=== PATIENT | male | born 1950 | race Caucasian/White ===

== ENCOUNTER 2019-09-07 16:10 | Outpatient (CLI) | payer MEDICARE, SELFPAY ==
--- NOTE | ~2019-09-07 | XR_ITS ---
XR abdomen/kub 1V 09/07/2019 16:50 INDICATION: Constipation. Abdominal discomfort. TECHNIQUE: KUB COMPARISON: None FINDINGS: Bowel gas pattern is normal. There is no evidence of free air, mass, organomegaly, ascites or obstruction. No abnormal calculi are seen. The bones appear intact. There are pelvic phlebolith s. Lung bases unremarkable IMPRESSION: 1: No acute abdominal abnormality identified. Reviewed, dictated and finalized at location A. 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
== END 2019-09-07 16:11 | disposition home or self-care (01) ==
LOC: ANHIMG 16:20
PROVIDERS: Visit Provider Nurse Practitioner
DX: K59.00 Constipation, unspecified (principal)
CPT/HCPCS: 74018

== ENCOUNTER 2019-09-27 11:39 | Outpatient (CLI) | payer MEDICARE, SELFPAY ==
--- NOTE | ~2019-09-27 | XR_ITS ---
XR hip LT min 2V 09/27/2019 11:57 Indication: Left hip pain Procedure: 2 views left Comparison: No prior studies for comparison. Findings: There is mild osteoarthritis of the left hip. No acute fracture or traumatic malalignment. No significant soft tissue abnormality. No radiopaque foreign bodies. Impression: 1: Mild osteoarthritis of the left hip. Reviewed, dictated and finalized at location A. Impression: 1: Mild osteoarthritis of the left hip.
== END 2019-09-27 11:40 | disposition home or self-care (01) ==
LOC: ANHIMG 11:44
PROVIDERS: Visit Provider Emergency Medicine
DX: M16.12 Unilateral primary osteoarthritis, left hip (principal)
CPT/HCPCS: 73502

== ENCOUNTER 2019-11-19 11:44 | Emergency (ER) | payer MEDICARE, SELFPAY ==
--- NOTE | ~2019-11-19 | XR_ITS ---
XR chest 1V portable DATE: 11/19/2019 12:16 INDICATION: Midsternal chest pain, pain between shoulder blades TECHNIQUE: Portable upright AP views on 11/19/2019 at 1213 and 1212 hours COMPARISON: None FINDINGS: Normal heart size. No hilar or mediastinal enlargement. No pulmonary infiltrate or consolid ation, pleural effusion or pulmonary vascular congestion or pneumothorax. Diffuse idiopathic skeletal hyperostosis of the thoracic spine. Degenerative change of the right acromion clavicular N both glenohumeral joints. IMPRESSION: No active cardiopulmonary disease Diffuse idiopathic skeletal hyperostosis of the thoracic spine and degenerative changes of the should er joints Reviewed, dictated and finalized at location A. IMPRESSION: No active cardiopulmonary disease Diffuse idiopathic skeletal hyperostosis of the thoracic spine and degenerative changes of the shoulder joints
[2019-11-19 11:47] VITALS: BP 149/78; PULSE 70; RESP 18; TEMP 36.2; O2SAT 100
[2019-11-19 11:59] VITALS: RESP 16
--- NOTE | 2019-11-19 11:59 | ECG_ITS ---
Measurements Intervals [place] Rate: 68 P: 31 AL: 179 QRS: 39 QRSD: 161 T: 32 QT: 383 QTc: 408 Interpretive Statements SINUS RHYTHM RIGHT BUNDLE BRANCH BLOCK BASELINE ARTIFACT- I, II, AVR ABNORMAL ECG Electronically Signed On 11-19-2019 12:31:17 CDT by Allan Schuler D.O.
--- NOTE | 2019-11-19 11:59 | ED.GENADULT ---
HPI - General Adult General Chief complaint: Unspecified Stated complaint: pains for over a month, now between shoulder Time Seen by Provider: 11/19/19 11:52 Source: RN notes reviewed History of Present Illness HPI narrative: Patient presents to emergency department from home for upper back pain. Patient states that for the past 1 week he has been having pain in his upper back between his shoulder blades. Patient states pain is described as aching in nature and worse with rotation of the torso and reaching for things with his arms. He states the pain is radiating around to the front of his chest today. States the pain is achy in nature states he called his PCP physician who recommended come to the emergency department. Patient says over the past month he has been also having pain in his bilateral lower back with pain radiating to his left groin. He denies any trauma or injury. Denies any fevers or chills shortness of breath abdominal pain nausea or vomiting numbness or tingling in the extremities bowel or bladder incontinence or any other symptoms Related Data Allergies Allergy/AdvReac Type Severity Reaction Status Date / Time morphine Allergy Unknown Unknown Verified 11/19/19 11:50 Review of Systems Review of Systems: Narrative: Gen.: Denies fevers or chills Eyes: Denies eye pain or visual change ENT: Denies congestion Respiratory: Denies shortness of breath or cough CV: Reports chest pain, denies palpitation GI: Denies abdominal pain nausea, emesis or diarrhea denies bowel or bladder incontinence Musculoskeletal: See HPI Neuro: Denies numbness, tingling, weakness or focal weakness Skin: Denies rash Except as documented, all other systems reviewed and negative [facility] Past Medical History Medical History Claustrophobia Hx of adenomatous colonic polyps Hyperlipemia YANICK (obstructive sleep apnea) Skin cancer Vitamin D deficiency Social History Social History Years smoked: 30 Smoking status: Light tobacco smoker Tobacco type: cigars Alcohol intake: current Drinks per week: 14 Substance use: never Additional living arrangements comments: Additional occupation/education comments: retired Gender identity (if verbalized by the patient): Male Exam Narrative: Exam Narrative: APPEARANCE: No acute distress, nontoxic, resting in bed EYES: EOMI HEENT: Normocephalic, atraumatic, OMM RESPIRATORY: No respiratory distress Clear to auscultation bilaterally with no rhonchi wheezing or rales. CARDIOVASCULAR: Regular rate and rhythm without murmurs rubs or gallops. Chest: Tender palpation of bilateral anterior chest wall, pain increased with rotation of the torso deep inspiration ABDOMINAL: Soft, nontender, nondistended, no rebound or guarding Back: No midline thoracic lumbar tenderness palpation, tender palpation bilateral paravertebral paravertebral muscles T4-6 pain increased with rotation of the torso MUSCULOSKELETAl: Moves all extremities. No clubbing, cyanosis or edema. NEURO: Awake and alert. Following commands, speech normal, no focal deficits muscle strength 5 out of 5 bilateral upper and lower extremities SKIN:: Warm, dry. No rashes lesions or abrasions PSYCHIATRIC: Normal affect/mood, Course Course Emergency Course: CT scan of the chest was ordered the patient is extremely claustrophobic and unable to lay for the test. Ativan was given and again attempted to CT the chest and the patient continued to be unable to tolerate secondary to his claustrophobia. I had a long extensive discussion with patient regarding the need for a brief test graded only needs only there for 3 to 4 minutes and that it was open he continues to refuse we discussed risks and benefits including the risk of aneurysm cardiopulmonary arrest and and continues to refuse at this time and will hold CT Reviewed the plan
[2019-11-19 12:15] VITALS: PULSE 79
[2019-11-19 12:17] LABS: Basophils Percent Auto 0.3 % (0.2-1.2); Eosinophils Absolute Auto 0.1 K/mm3 (0-0.3); Eosinophils Percent Auto 0.8 % (0-4.4); Hematocrit 37.1 % (42.0-52.0); Hemoglobin 11.7 g/dL (14.0-18.0); Immature Granulocyte Absolute 0.02 K/mm3 (0.00-0.031); Immature Granulocyte Percent A 0.3 % (0-0.5); Lymphocytes Absolute Auto 1.24 K/mm3 (0.9-3.2); Lymphocytes Percent Auto 19.1 % (18.3-44.2); Mean Corpuscular HGB Conc 31.5 g/dl (32-36); Mean Corpuscular Hemoglobin 28.2 pg (26-34); Mean Corpuscular Volume 89.4 fl (80-100); Mean Platelet Volume 8.3 fl (7.4-10.4); Monocytes Absolute Auto 0.6 K/mm3 (0.1-0.6); Monocytes Percent Auto 8.9 % (2.6-8.5); Neutrophils Absolute Auto 4.6 K/mm3 (1.3-6.7); Neutrophils Percent Auto 70.6 % (45.5-73.1); Platelet Count Result 298 k/mm3 (150-375); Red Blood Count 4.15 M/mm3 (4.6-6.20); Red Cell Distribution Width 12.9 % (11.5-14.5); White Blood Count 6.5 K/mm3 (4.5-10.0)
[2019-11-19 12:31] LABS: Alanine Aminotransferase 20 U/L (4-50); Albumin Level 4.3 g/dL (3.5-5.1); Alkaline Phosphatase 96 U/L (38-126); Aspartate Amino Transferase 28 U/L (17-59); Bilirubin,Total 0.5 mg/dL (0.2-1.3); Blood Urea Nitrogen 15 mg/dL (9-20); Calcium 9.5 mg/dL (8.4-10.2); Carbon Dioxide 32 mmol/L (22-30); Chloride 102 mmol/L (98-107); Estimated CRCL calculation 96 ml/min; Estimated Glomerular Filt Rate > 60; Glucose 94 mg/dL (75-110); Lipase 42 U/L (23-300); Potassium 4.3 mmol/L (3.4-5.0); Sodium 137 mmol/L (137-145)
[2019-11-19 12:37] LABS: INR 1.1; Prothrombin Time 13.4 Seconds (11.1-14.7)
[2019-11-19 12:38] LABS: Partial Thromboplastin Time 30.3 SECONDS (22.3-36.8)
[2019-11-19 12:43] LABS: Troponin I < 0.012 ng/mL (0.000-0.034)
[2019-11-19 13:08] LABS: Add Urine Microscopic? YES; Appearance Urine Clear (Clear); Bilirubin Urine Negative (Negative); Blood Urine Negative (Negative); Color Urine Yellow (Yellow); Glucose Urine UA Negative (Negative); Ketones Urine Negative (Negative); Leukocyte Esterase Ur Negative LEU/UL (Negative); Mucus Urine Heavy /lpf; Nitrate Urine Negative (Negative); Protein Urine Negative (Negative); RBC Urine 0-2 /hpf (0-2); Specific Grav Ur 1.021 (1.001-1.035); WBC Urine 0-3 /hpf
[2019-11-19] MEDS: LORAZEPAM INJ 2 MG/ML VIAL 0.5 MG IV PUSH (14:03)
[2019-11-19 15:24] VITALS: BP 163/74; PULSE 58; RESP 14; O2SAT 100
[2019-11-19 15:54] LABS: Troponin I < 0.012 ng/mL (0.000-0.034)
== END 2019-11-19 17:02 | disposition home or self-care (01) ==
PROVIDERS: Emergency Provider Emergency Medicine; PCP Emergency Medicine
DX: M54.6 Pain in thoracic spine (principal); R07.89 Other chest pain; E78.5 Hyperlipidemia, unspecified; G47.33 Obstructive sleep apnea (adult) (pediatric); E55.9 Vitamin D deficiency, unspecified; Z85.828 Personal history of other malignant neoplasm of skin; F17.290 Nicotine dependence, other tobacco product, uncomplicated; I45.10 Unspecified right bundle-branch block
CPT/HCPCS: 36415; 71045; 80053; 81001; 83690; 84484; 85025; 85610; 85730; 93005; 96374; 99284; J2060

== ENCOUNTER 2019-11-25 06:34 | Outpatient (CLI) | payer MEDICARE, SELFPAY ==
--- NOTE | ~2019-11-25 | CT_ITS ---
EXAMINATION: CT chest wo con DATE: 11/25/2019 07:01 INDICATION: R07.89 Other chest pain TECHNIQUE: Computed tomography (CT) of the chest was performed without intravenous contrast. Addition al 3D reconstructions utilizing coronal maximum intensity projection (MIP) were performed. Automated exposure control and iterative reconstruction technique were employed. The dose-length product was 69 7.04 mGy-cm. COMPARISON: None FINDINGS: 3 mm nodule in the left upper lobe. Lungs are otherwise clear with no airspace disease, pulmonary jacques ma or pleural effusion. Heart size is normal. Atherosclerotic coronary artery calcification. There is some subtle fat attenuation along the ventricular septum suggesting prior myocardial infarction. No pericardial effusion. Thoracic aorta is normal in caliber. No pathologically enlarged thoracic lympha denopathy. There are however multiple enlarged lymph nodes in the upper abdomen with haziness to the surrounding fat in both the mesentery and retroperitoneum. For reference a mesenteric lymph node in t he left upper quadrant measures 5.3 x 2.3 cm and a partially visualized left paracolic lymph node srinivasan sures at least 2.5 x 1.7 cm. Spleen, gallbladder, pancreas, bilateral adrenal glands and visualized p ortions of the liver and bilateral kidneys are normal. There are bridging osteophytes at multiple lev els in the spine, consistent with diffuse idiopathic skeletal hyperostosis (DISH). Lytic bone lesions at the sternum and T11 vertebral bodies. IMPRESSION: 1. No evident acute cardiopulmonary disease. 2. Upper abdominal lymphadenopathy as well as a couple lytic bone lesions concerning for metastatic d isease or lymphoma. Would recommend contrast-enhanced CT of the abdomen and pelvis to assess for a pr imary malignancy. 3. Coronary artery disease with subtle fat attenuation on the ventricular septum suggesting earlier m yocardial infarction. Reviewed, dictated and finalized at location A. IMPRESSION: 1. No evident acute cardiopulmonary disease. 2. Upper abdominal lymphadenopathy as well as a couple lytic bone lesions rickey rning for metastatic disease or lymphoma. Would recommend contrast-enhanced CT of the abdomen and pelvis to assess for a primary malignancy. 3. Coronary artery disease with subtle fat attenuation on the ventricular septu m suggesting earlier myocardial infarction.
== END 2019-11-25 06:35 | disposition home or self-care (01) ==
LOC: ANHIMG 06:36
PROVIDERS: PCP Emergency Medicine; Visit Provider Emergency Medicine
DX: R07.9 Chest pain, unspecified (principal); R59.0 Localized enlarged lymph nodes; M89.9 Disorder of bone, unspecified; I25.10 Atherosclerotic heart disease of native coronary artery without angina pectoris
CPT/HCPCS: 71250

== ENCOUNTER 2019-11-25 06:57 | Emergency (ER) | payer MEDICARE, SELFPAY ==
--- NOTE | ~2019-11-25 | CT_ITS ---
EXAMINATION: CT abdomen pelvis w con DATE: 11/25/2019 08:28 INDICATION: Normal chest CT with lytic bone lesions and upper abdominal lymphadenopathy. TECHNIQUE: Computed tomography (CT) of the abdomen and pelvis was performed . with 100 mL Omnipaque-3 50 intravenous contrast. Automated exposure control and iterative reconstruction technique were emplo yed. The dose-length product was 1374.30 mGy-cm. COMPARISON: None FINDINGS: Minimal atelectasis in the left lower lobe. Heart size is normal. No pericardial or pleural effusion. Indeterminate ill-defined 1 cm lesion in segment 7 of the liver of slightly lower density than the s urrounding liver. There is an additional 12 mm lower-density lesion at the caudal aspect of the splee n. Gallbladder, pancreas, bilateral adrenal glands and kidneys are normal. There is mild colonic dive rticulosis with a sigmoid predominance. There is no adjacent inflammatory change to suggest divertic ulitis. Small bowel and appendix are normal. Bladder is normal. There is haziness to the mesentery montano rrounding bulky central mesenteric lymphadenopathy. There are additional enlarged left paraaortic lym ph nodes with similar surrounding inflammatory stranding. No pelvic lymphadenopathy. Bilateral fat-co ntaining inguinal hernias. No free intraperitoneal gas or fluid. Again seen is a lytic lesion occupyi ng a significant portion of the T11 vertebral body. No other suspicious lytic bone lesions identified . Mild L4 compression fracture with 20% anterior vertebral body height loss and subtle associated inc reased sclerosis suggesting subacute chronicity. Mild lumbar dextroscoliosis with mild to moderate sp ondylosis. Moderate bilateral hip osteoarthritis. IMPRESSION: 1. Bulky mesenteric and retroperitoneal lymphadenopathy suspicious for lymphoma with differential inc luding metastatic disease related to other unknown primary malignancy. Recommend CT-guided biopsy of one of the left paracolic lymph nodes. 2. Couple small proximal 1 cm lesions in the liver and spleen of lower density than surrounding paren chyma with differential including hemangiomas or other benign etiologies, lymphoma and metastatic dis ease. 3. Lytic lesion at T11 consistent with metastatic disease. 4. Subacute appearing mild L4 compression fracture without evident underlying lytic lesion. 5. Fat-containing bilateral inguinal hernias. Reviewed, dictated and finalized at location A. IMPRESSION: 1. Bulky mesenteric and retroperitoneal lymphadenopathy suspicious for lymphoma with differential including metastatic disease related to other unknown primar y malignancy. Recommend CT-guided biopsy of one of the left paracolic lymph nod es. 2. Couple small proximal 1 cm lesions in the liver and spleen of lower density than surrounding parenchyma with differential including hemangiomas or other be nign etiologies, lymphoma and metastatic disease. 3. Lytic lesion at T11 consistent with metastatic disease. 4. Subacute appearing mild L4 compression fracture without evident underlying l ytic lesion. 5. Fat-containing bilateral inguinal hernias.
[2019-11-25 07:01] VITALS: BP 159/73; PULSE 69; RESP 18; TEMP 36.5; O2SAT 100
[2019-11-25 07:10] VITALS: PULSE 67
--- NOTE | 2019-11-25 07:10 | ECG_ITS ---
Measurements Intervals [place] Rate: 67 P: 56 [place]: 197 QRS: 26 QRSD: 154 T: 27 QT: 375 QTc: 397 Interpretive Statements SINUS RHYTHM RIGHT BUNDLE BRANCH BLOCK ABNORMAL ECG Electronically Signed On 11-25-2019 8:17:53 CDT by Allan Schuler D.O.
--- NOTE | 2019-11-25 07:14 | ED.CHESTPAIN ---
HPI - Chest Pain General Chief Complaint: Chest Pain Stated Complaint: Chest pain Time Seen by Provider: 11/25/19 07:09 History of Present Illness HPI narrative: 69 yo male w/ history of claustrophobia presents with a complaint of pain. He says that for the past several weeks he has had pain in multiple locations around his body. The pain started in his lower back. It then moved up his back and began radiating into his chest. He has also noted pain in his left hip and shoulders at times. The pain is worse with movement and coughing. He has been taking tylenol and naproxen with little improvement. He reports that all of this was preceded by a colonoscopy and a period of severe constipation, which he feels that he now has under control. He was seen here on 11/19/2019 for this same pain. Cardiac work-up was negative. CTA of the chest was attempted, but he was not able to get it due to claustophobia. He was discharged to follow-up with his Dr. [place], his PCP. He ordered a non-contrast CT of his chest, which he had done today. While in radiology he complained of chest pain and was sent back to the ED. He says that this pain is no different than before. At the time of my evaluation he is no longer having any pain. Related Data Allergies Allergy/AdvReac Type Severity Reaction Status Date / Time morphine Allergy Unknown Unknown Verified 11/25/19 07:53 Review of Systems Review of Systems: All systems reviewed & are unremarkable except as noted in HPI and below Constitutional: Constitutional: Denies chills, Denies fever(s) and Denies weakness ENT: Denies dizziness Cardiovascular: Cardiovascular: Reports chest pain Respiratory: Respiratory: Denies chest congestion, Denies cough and Denies dyspnea Gastrointestinal: Gastrointestinal: Reports constipation, Denies diarrhea, Denies nausea and Denies vomiting Genitourinary: Genitourinary: Denies hematuria and Denies dysuria Musculoskeletal: Musculoskeletal: Reports back pain, Reports myalgias and Reports arthralgias Neurologic: Denies numbness and Denies weakness PMFSH Past Medical History Medical History Claustrophobia Hx of adenomatous colonic polyps Hyperlipemia YANICK (obstructive sleep apnea) Skin cancer Vitamin D deficiency Surgical History Surgical History History of back surgery History of bilateral carpal tunnel release History of bilateral knee replacement Hx of colonoscopy Hx of repair of rotator cuff Family History Family History Father Carcinoma of colon, Onset Age: 59 Patient's father is Mother Carcinoma of colon, Onset Age: 69 Patient's mother is Sibling Family history of cardiovascular disease Family history of malignant neoplasm Father Family history of malignant neoplasm, Onset Age: 59 Mother Family history of malignant neoplasm, Onset Age: 72 Social History Social History Years smoked: 30 Smoking status: Light tobacco smoker Tobacco type: cigars Alcohol intake: current Drinks per week: 14 Substance use: never Additional living arrangements comments: Additional occupation/education comments: retired Gender identity (if verbalized by the patient): Male Exam Const: General: healthy appearing, no acute distress and alert Orientation/consciousness: patient oriented x3 HENMT: Head: normal to inspection Neck: Neck: normal visual inspection and no lymphadenopathy Chest: Chest palpation & inspection: tenderness sternum Resp: Effort & Inspection: normal respiratory effort Auscultation: clear to auscultation bilaterally, no rales, no rhonchi and no wheezes Cardio: Jugular venous distension: no JVD Rate: regular rate Rhythm: regul
[2019-11-25 07:51] VITALS: BP 132/65; PULSE 65; RESP 15; O2SAT 100
[2019-11-25 07:52] VITALS: O2SAT 100
[2019-11-25 08:03] LABS: Basophils Percent Auto 0.3 % (0.2-1.2); Eosinophils Absolute Auto 0.1 K/mm3 (0-0.3); Eosinophils Percent Auto 1.4 % (0-4.4); Hematocrit 37.7 % (42.0-52.0); Hemoglobin 11.5 g/dL (14.0-18.0); Immature Granulocyte Absolute 0.03 K/mm3 (0.00-0.031); Immature Granulocyte Percent A 0.5 % (0-0.5); Lymphocytes Absolute Auto 1.13 K/mm3 (0.9-3.2); Lymphocytes Percent Auto 17.3 % (18.3-44.2); Mean Corpuscular HGB Conc 30.5 g/dl (32-36); Mean Corpuscular Hemoglobin 27.8 pg (26-34); Mean Corpuscular Volume 91.1 fl (80-100); Mean Platelet Volume 8.7 fl (7.4-10.4); Monocytes Absolute Auto 0.7 K/mm3 (0.1-0.6); Monocytes Percent Auto 10.1 % (2.6-8.5); Neutrophils Absolute Auto 4.6 K/mm3 (1.3-6.7); Neutrophils Percent Auto 70.4 % (45.5-73.1); Platelet Count Result 298 k/mm3 (150-375); Red Blood Count 4.14 M/mm3 (4.6-6.20); Red Cell Distribution Width 13.3 % (11.5-14.5); White Blood Count 6.5 K/mm3 (4.5-10.0)
--- NOTE | 2019-11-25 08:13 | PC.NURSE ---
Spoke to pt on phone after verbal permission from pt. Updated on pt status.
[2019-11-25 08:14] LABS: Alanine Aminotransferase 22 U/L (4-50); Albumin Level 4.2 g/dL (3.5-5.1); Alkaline Phosphatase 89 U/L (38-126); Aspartate Amino Transferase 31 U/L (17-59); Bilirubin,Total 0.2 mg/dL (0.2-1.3); Blood Urea Nitrogen 22 mg/dL (9-20); Calcium 9.6 mg/dL (8.4-10.2); Carbon Dioxide 32 mmol/L (22-30); Chloride 102 mmol/L (98-107); Estimated Glomerular Filt Rate > 60; Glucose 102 mg/dL (75-110); Potassium 4.5 mmol/L (3.4-5.0); Sodium 139 mmol/L (137-145)
[2019-11-25 08:26] LABS: Troponin I < 0.012 ng/mL (0.000-0.034)
[2019-11-25 08:53] VITALS: BP 135/77; PULSE 56; RESP 13; O2SAT 100
--- NOTE | 2019-11-25 08:56 | PC.NURSE ---
EDP at bedside discussing results w/ pt and pt at bedside.
--- NOTE | 2019-11-25 09:11 | PC.NURSE ---
ordered a breakfast tray per pt per request for coffee - called dietary
[2019-11-25 10:05] VITALS: BP 135/77; PULSE 63; RESP 14; O2SAT 99
== END 2019-11-25 10:06 | disposition home or self-care (01) ==
PROVIDERS: Emergency Provider Emergency Medicine; PCP Emergency Medicine
DX: M89.9 Disorder of bone, unspecified (principal); R59.1 Generalized enlarged lymph nodes; F40.240 Claustrophobia; E78.5 Hyperlipidemia, unspecified; G47.33 Obstructive sleep apnea (adult) (pediatric); Z85.828 Personal history of other malignant neoplasm of skin; E55.9 Vitamin D deficiency, unspecified; Z96.653 Presence of artificial knee joint, bilateral; F17.290 Nicotine dependence, other tobacco product, uncomplicated; K76.9 Liver disease, unspecified; D73.89 Other diseases of spleen; K40.90 Unilateral inguinal hernia, without obstruction or gangrene, not specified as recurrent
CPT/HCPCS: 36415; 71250; 74177; 80053; 84484; 85025; 93005; 99284; Q9967

== ENCOUNTER 2019-12-03 09:29 | Outpatient (CLI) | payer MEDICARE, SELFPAY ==
[2019-11-30 15:12] VITALS: BMI 34.3
[2019-12-03] VITALS (11 sets, daily range): BP systolic 136–163; BP diastolic 71–82; PULSE 52–81; RESP 14–16; O2SAT 95–100
--- NOTE | ~2019-12-03 | CT_ITS ---
EXAMINATION: CT biopsy lymph node DATE: 12/03/2019 12:38 INDICATION: Retroperitoneal lymphadenopathy. TECHNIQUE: The procedure including the risks, benefits, and alternatives was discussed with the patie nt. Risks discussed included bleeding and infection. The patient verbalized understanding of the risk s and agreed to proceed. The skin overlying the retroperitoneum was prepped and draped in usual ster ile fashion. Anesthetic was administered with 1% lidocaine subcutaneously. A 16 gauge outer needle was advanced under CT guidance to the enlarged left para-aortic lymph node. An 18 gauge core biopsy n eedle was then used to obtain 6 core biopsy specimens. The mA was adjusted according to patient size. Iterative reconstruction technique was employed. The dose-length product was 158.90 mGy-cm. The need le was removed and the entry site was cleaned and dressed. There were no immediate complications. FINDINGS: CT images demonstrate the outer needle tip adjacent to an enlarged left para-aortic lymph n ode. IMPRESSION: 1. CT-guided core needle biopsy of an enlarged left para-aortic lymph node. Reviewed, dictated and finalized at location A.
[2019-12-03 10:16] LABS: Prothrombin Time 13.3 Seconds (11.1-14.7)
== END 2019-12-03 09:30 | disposition home or self-care (01) ==
LOC: ANHIMG 09:31
PROVIDERS: Radiology Diagnostic Radiology; PCP Emergency Medicine; Visit Provider Surgery
DX: C82.93 Follicular lymphoma, unspecified, intra-abdominal lymph nodes (principal)
CPT/HCPCS: 36415; 38505; 77012; 85610; 88184; 88185; 88305

== ENCOUNTER 2019-12-30 13:39 | Outpatient (CLI) | payer MEDICARE, SELFPAY ==
--- NOTE | ~2019-12-30 | XR_ITS ---
EXAMINATION: XR lumbar spine 2-3V DATE: 12/30/2019 14:06 INDICATION: Acute bilateral back pain. TECHNIQUE: 3 views of lumbar spine were obtained. COMPARISON: Lumbar spine radiographs 02/21/2015, CT abdomen and pelvis 11/25/2019 FINDINGS: There is 8 degrees dextrocurvature of lumbar spine. There is a compression fracture of L4 w ith 1/5 loss of height. There is mild chronic anterior wedging of T12 and L1 vertebral bodies. There is mildly decreased disc height at L1-L2 and L2-L3, moderately decreased disc height at L3-L4, and mi ldly decreased disc height at L4-L5. There are endplate osteophytes at all levels. There is multileve l facet joint osteoarthritis, severe at L5-S1. IMPRESSION: 1. Moderate lumbar spondylosis. 2. L4 compression fracture, stable from 11/25/2019. Reviewed, dictated and finalized at location A.
--- NOTE | ~2019-12-30 | XR_ITS ---
EXAMINATION: XR thoracic spine 2V DATE: 12/30/2019 14:06 INDICATION: Acute bilateral back pain. TECHNIQUE: 2 views of thoracic spine were obtained. COMPARISON: CT abdomen and pelvis 11/25/2019 FINDINGS: There is 3 degrees levocurvature of thoracic spine. Vertebral body heights are normal. Ther e is a lytic lesion in T11 vertebral body better seen by CT. There is mildly decreased disc height at T9-T10 and T10-T11. There are bridging endplate osteophytes at multiple levels in the spine, consist ent with diffuse idiopathic skeletal hyperostosis (DISH). IMPRESSION: 1. Lytic lesion in T11 vertebral body better seen on the prior CT, consistent with lymphoma. 2. Mild thoracic spondylosis. 3. DISH. Reviewed, dictated and finalized at location A. IMPRESSION: 1. Lytic lesion in T11 vertebral body better seen on the prior CT, consistent w ith lymphoma. 2. Mild thoracic spondylosis. 3. DISH.
--- NOTE | ~2019-12-30 | XR_ITS ---
EXAMINATION: XR ribs RT 2V DATE: 12/30/2019 14:06 INDICATION: Right rib pain. TECHNIQUE: 3 views of the right ribs were obtained. COMPARISON: Chest single view 11/19/2019 FINDINGS: There is no right-sided pneumonia, pleural effusion, or pneumothorax. The heart size is nor mal. IMPRESSION: 1. No rib fracture. Reviewed, dictated and finalized at location A. IMPRESSION: 1. No rib fracture.
== END 2019-12-30 13:40 | disposition home or self-care (01) ==
LOC: ANHIMG 13:41
PROVIDERS: PCP Emergency Medicine; Visit Provider Internal Medicine Medical Oncology
DX: M54.9 Dorsalgia, unspecified (principal); M89.9 Disorder of bone, unspecified; M47.814 Spondylosis without myelopathy or radiculopathy, thoracic region; M48.14 Ankylosing hyperostosis [Forestier], thoracic region; M48.56XA Collapsed vertebra, not elsewhere classified, lumbar region, initial encounter for fracture
CPT/HCPCS: 71100; 72070; 72100

== ENCOUNTER 2020-03-16 09:36 | Outpatient (CLI) | payer MEDICARE, SELFPAY ==
--- NOTE | ~2020-03-16 | CT_ITS ---
EXAMINATION: CT chest abdomen pelvis wo con DATE: 03/16/2020 10:07 INDICATION: Bone metastases. Follicular lymphoma. TECHNIQUE: Computed tomography (CT) of the chest, abdomen, and pelvis was performed without intraveno us contrast. Automated exposure control and iterative reconstruction technique were employed. The dos e-length product was 1811.03 mGy-cm. COMPARISON: CT chest, abdomen and pelvis dated 11/25/2019 FINDINGS: CHEST CT: Unchanged 3 mm left upper lobe nodule with relatively high attenuation suggesting a calcified granulo ma. No new or enlarging pulmonary nodules, pneumonia, pulmonary edema or other pulmonary infiltrates with no pleural effusion. Heart size is normal. Atherosclerotic coronary artery calcifications and montano btle fat along the ventricular septum suggesting sequela of prior infarct. No pericardial effusion. T horacic aorta is normal in caliber. No pathologically enlarged thoracic lymphadenopathy. There is increasing sclerosis at an ununited pathologic sternal fracture at the site of a previously noted lytic lesion. Similarly there is increasing sclerosis at the previous noted lytic lesion at T11 also with pathologic compression fracture with <20% anterior vertebral body height loss. Increasing sclerosis at a healing likely pathologic anterior right 11th rib fracture at the site of a prior expa nsile lytic lesion. No other suspicious lytic or blastic bone lesions. ABDOMEN/PELVIS CT: Unchanged small low-attenuation lesion at segment 7 of the liver most likely a hepatic cyst or lois ioma. The previously noted 12 mm low-density/hypoenhancing lesion along the inferior spleen is not ev ident in the current study and may have represented metastatic disease with response to treatment. Ga llbladder, pancreas, bilateral adrenal glands and kidneys are normal. Small bowel and appendix are no rmal. There is mild colonic diverticulosis with a sigmoid predominance. There is no adjacent inflamm atory change to suggest diverticulitis. Bladder is normal. Bilateral fat-containing inguinal hernias. No free intraperitoneal gas or fluid. There is some persistent haziness to the small bowel mesentery. There has however been significant de crease in size of the prior bulky mesenteric and retroperitoneal lymph nodes. For reference a previou sly 4.6 x 3.6 cm conglomeration of left para-aortic lymph nodes at the level of L3 has decreased to 2 .0 x 1.4 cm which now also include some intervening fat. A 5.3 x 2.2 cm mesenteric lymph node in the left upper quadrant has decreased 3.1 x 0.8 cm. No significant interval change in a subacute L4 compr ession fracture with 20% anterior vertebral body height loss which is without evident underlying lyti c lesion at the prior study and which may be coincidental. No other suspicious lytic or newly sclerot ic bone lesions. IMPRESSION: 1. Significant decrease in size in bulky mesenteric and retroperitoneal lymphadenopathy consistent wi th treated lymphoma. 2. Increasing sclerosis consistent with response to treatment associated with likely pathologic fract ures at sites of prior lytic lesions at the sternum, anterior right 11th rib and T11 vertebral body. 3. No significant interval change in a healing mild L4 compression fracture without increasing sclero sis in the current study or prior lytic lesion to suggest underlying metastatic disease at this locat ion. 4. Prior 12 mm hypodense/hypoenhancing splenic lesion is no longer visualized which may be due to the absence of intravenous contrast or response to treatment of metastatic disease. Reviewed, dictated and finalized at location A. IMPRESSION: 1. Significant decrease in size in bulky mesenteric and retroperitoneal lymphad enopathy consistent with treated lymphoma. 2. Increasing scl
== END 2020-03-16 09:37 | disposition home or self-care (01) ==
LOC: ANHIMG 09:40
PROVIDERS: PCP Emergency Medicine; Visit Provider Internal Medicine Medical Oncology
DX: C79.51 Secondary malignant neoplasm of bone (principal); C82.90 Follicular lymphoma, unspecified, unspecified site
CPT/HCPCS: 71250; 74176

== ENCOUNTER 2020-05-04 11:08 | Outpatient (CLI) | payer MEDICARE, SELFPAY ==
--- NOTE | ~2020-05-04 | XR_ITS ---
EXAMINATION:XR_CERV2-3V_CR DATE: 05/04/2020 11:28 INDICATION: Neck pain TECHNIQUE: AP, lateral, and odontoid views of the cervical spine are provided. COMPARISON: None FINDINGS: There are 3 mm of retrolisthesis of C5 on C6. The odontoid is intact. No fracture is identi fied. The vertebral body heights are maintained. There is moderate loss of intervertebral disc space height at C5-6. Prevertebral soft tissues are normal. Degenerative osteophytes project from the anter ior endplates of multiple vertebral bodies. There is severe facet and uncovertebral joint osteoarthri tis in the mid and lower cervical spine. IMPRESSION: 1. Moderate cervical spondylosis without acute findings. Reviewed, dictated and finalized at location A.
== END 2020-05-04 11:09 | disposition home or self-care (01) ==
PROVIDERS: PCP Emergency Medicine; Visit Provider Emergency Medicine
DX: M47.812 Spondylosis without myelopathy or radiculopathy, cervical region (principal)
CPT/HCPCS: 72040

== ENCOUNTER 2020-06-14 08:30 | Outpatient (RCR) | payer MEDICARE, SELFPAY ==
--- NOTE | 2020-05-17 13:52 | PTOPEVAL ---
PHYSICAL THERAPY EVALUATION Thank you for referring Jai Alexander to [facility].? The patient was evaluated today with a dx of cervical spondylosis with left radiculopathy. The patient is scheduled to be seen for therapy? 2 x/week for 4 weeks. Please review, sign, date and return this plan of care DONYA. I agree with and certify that the following plan of care is medically necessary. Referring Physician Date Attending Provider: Mendez Oviedo MD *PT Outpatient Evaluation Start: 05/17/20 12:38 Freq: Status: Active Protocol: Document 05/17/20 12:30 MLV (Rec: 05/17/20 13:52 MLV [id number]) Assessment Status Evaluation Evaluation Information Problem Diagnosis cervical spondylosis with radiculopathy left arm Onset 4 months ago Cause no event Additional Evaluation Detail Patient had back surgery with a good recovery 10-15 years ago but no treatment for the neck so far. Patient has had surgery on both shoulders. *Lifestyle: works in [employer], Double the Donation ball, stationary bike Subjective Information Patient began having pain at Query Text:As Reported By Patient/ shoulder and left arm tingling Family without an event. The symptoms come and goes approximately 4 times a week. The symptoms can correlate to sitting at the computer more often than other activities. Diagnostic Tests X-Rays For This Problem Yes: OA cervical Pain Assessment Timing of Pain Assessment Timing of Pain Assessment Assessment Pain Scale Pain Scale Used Numeric (1 - 10) Self Report Pain Assessment Left Shoulder(s) Reported Pain Level 0 Greatest Pain Intensity 6 Pain Aggravating Factors Prolonged Position,Sitting Pain Score Pain Score 0: Self Report Interventions Used Interventions Used By Clinicians Education Pain Relief Interventions Used By Position Change Patient Cervical and Lumbar ROM Cervical ROM Cervical Flexion (0-60) 70 Query Text:Active in Degrees Cervical Extension (0-70) 20 Query Text:Active in Degrees Cervical Lateral Flexion Right (0-50) 25 Query Text:Active in Degrees Cervical Lateral Flexion Left (0-50) 40 Query Text:Active in Degrees Cervical Rotation Right (0-90) 65 Query Text:Active in Degrees Cervical Rotation Left (0-90) 65 Query Text:Active in Degrees Upper Extremity R
--- NOTE | 2020-06-14 09:18 | PTOPEVAL ---
PHYSICAL THERAPY DISCHARGE SUMMARY Thank you for referring Jai Alexander to [facility].? The patient has met all goals and no further skilled therapy needed after being seen for therapy? 8 visits. Please review, sign, date and return this plan of care DONYA. I agree with and certify that the following plan of care is medically necessary. Referring Physician Date Attending Provider: Mendez Oviedo MD *PT Outpatient Evaluation Start: 05/17/20 12:38 Freq: Status: Active Protocol: Document 06/14/20 08:30 MLV (Rec: 06/14/20 09:17 MLV [email or web address]) Therapy Assessment Status Discharge Pain Assessment Timing of Pain Assessment Timing of Pain Assessment Assessment Pain Scale Pain Scale Used Numeric (1 - 10) Self Report Pain Assessment Left Shoulder(s) Reported Pain Level 0 Pain Aggravating Factors Other Pain Aggravating Factors Other Pain Aggravating Factors excessive computer work will give an occasional, short tingling to his arm. Additional Pain Comments Patient feels he is 85% better than at eval Pain Score Pain Score 0: Self Report Interventions Used Interventions Used By Clinicians Exercise,Mobilization,Manual Therapy Techniques Pain Relief Interventions Used By Exercise,Position Change Patient Other Alleviating Interventions patient independent with posture correction Cervical and Lumbar ROM Cervical ROM Cervical Flexion (0-60) 70 Query Text:Active in Degrees Cervical Extension (0-70) 40 Query Text:Active in Degrees Cervical Lateral Flexion Right (0-50) 45 Query Text:Active in Degrees Cervical Lateral Flexion Left (0-50) 45 Query Text:Active in Degrees Palpation Assessment Palpation Palpation improved 85% since eval: cervical paraspinals, upper traps tightnesses minimal to none Special Tests-Upper Extremity Shoulder Special Tests Empty Can (supraspinatus) Test Negative Left,Negative Right Thoracic Outlet Special Tests [place] Maneuver Negative Left,Negative Right PT Clinical Summary Mr. Alexander is a 69 y/o male evaluated/treated for cervical spondylosis/left arm radiculopathy. The patient has improved with soft tissue palpation/vertebral mobility, cervical motion and a relief of radicular symptoms at left arm with activities.
== END 2020-06-14 13:05 | disposition home or self-care (01) ==
LOC: ANHPT 08:30
PROVIDERS: PCP Emergency Medicine; Visit Provider Emergency Medicine
DX: M47.812 Spondylosis without myelopathy or radiculopathy, cervical region (principal)
CPT/HCPCS: 97110; 97140; 97161

== ENCOUNTER 2021-08-13 08:00 | Outpatient (RCR) | payer MEDICARE, SELFPAY ==
--- NOTE | 2021-07-12 09:27 | PTOPEVAL ---
Thank you for referring Jai Alexander to [facility].? The patient is scheduled to be seen for therapy?2 x/week for 6 weeks. Please review, sign, date and return this plan of care DONYA. I agree with and certify that the following plan of care is medically necessary. Referring Physician Date Attending Provider: Priyank Ellison, DO Diagnosis chronic back pain Additional Evaluation Detail He was started on meloxicane which helped his pain. he had therapy for his neck ~1 yr ago, but does not perform HEP. Subjective Information He had an increase back pain Query Text:As Reported By Patient/ over the past 6 months. He Family tries to stretch his back in the morning. Hip flexor lunge stretch and trunk flex toe touches. Reports increased pain with walking, standing and lifting task. Denies limitations with IADL's due to pain. Difficulty with donning pants/ shoes due to knee pain. Pain Assessment Lower Back Reported Pain Level 1 Pain Description Sharp,Tightness Pain Frequency Chronic Lowest Pain Intensity 1 Greatest Pain Intensity 7 Pain Aggravating Factors Prolonged Position,Walking, Weight Bearing/Standing Cervical and Lumbar ROM Lumbar ROM Lumbar Flexion Active Floor:Hands to: Lateral Flexion mid thigh when substitution Query Text:Active Hands to: restricted increased pain Lumbar Comments 75% of trunk ext, no pain Cervical and Lumbar Muscle Testing Lumbar Strength Upper Abdominal Strength 3+Fair+ Lower Abdominal Strength 3+Fair+ Upper Back Extension 3-Fair- Lower Back Extension 3 Fair Lower Extremity Muscle Strength Testing Hip Strength Bilateral Hip Flexion Strength 4+ Good + Hip Extension Strength 4+ Good + Hip Abduction Strength 3+ Fair + Knee Strength Bilateral Knee Flexion Strength 5 Normal Knee Extension Strength 5 Normal Muscle Length Testing Muscle Length Testing Two-Joint Hip Flexor Shortened Muscles Short (R) Iliopsoas,Short (L) Iliopsoas,Short (R) Rectus Femoris,Short (L) Rectus Femoris,Short (R) Ilial Tib Band,Short (L) Ilial Tib Band Piriformis w/Hip Neutral (R) Moderate Tightness,(L)
--- NOTE | 2021-08-13 08:56 | PTOPEVAL ---
Physical Therapy Discharge Summary Thank you for referring Jai Alexander to [facility].?Jai has been seen for 9 therapy visits to address his back pain. As a result of skilled therapy services he demonstrates improved function, improved pain and improve limitations. He demonstrates indep and compliance with his HEP. Will DC skilled therapy services at this time. Please review, sign, date and return this discharge summary DONYA. I agree with and certify that the following plan of care is medically necessary. Referring Physician Date Attending Provider: Priyank Ellison, DO Diagnosis chronic back pain Additional Evaluation Detail He was started on meloxicam which helped his pain. he had therapy for his neck ~1 yr ago, but does not perform HEP. Subjective Information he reports his back is feeling Query Text:As Reported By Patient/ better as a result of therapy Family services. He was able to paint this weekend without significant changes in pain. Reports increased pain with prolonged bending over position for wood working task. He remains limited with prolonged walking and with lifting task. Reports improved hailey with sleeping and sitting. Difficulty with donning pants/shoes due to knee pain. Pain Assessment Lower Back Reported Pain Level 0 Pain Description Aching Pain Frequency Intermittent Lowest Pain Intensity 0 Greatest Pain Intensity 4 Pain Aggravating Factors Bending,Walking,Weight Bearing /Standing Cervical and Lumbar ROM Lumbar ROM Lumbar Flexion Active Floor:Hands to: Lateral Flexion distal thigh:Active Hands to: Lumbar Comments 75% of trunk ext, muscle tightness with trunk motions Lower Extremity Muscle Strength Testing Hip Strength Bilateral Hip Flexion Strength 4+ Good + Hip Extension Strength 5 Normal Hip Abduction Strength 4- Good - Knee Strength Bilateral Knee Flexion Strength 5 Normal Knee Extension Strength 5 Normal Muscle Length Testing Muscle Length Testing Two-Joint Hip Flexor Shortened Muscles Short (R) Iliopsoas,Short (L) Iliopsoas,Short (R) Rectus Femoris,Short (L) Rectus Femoris,Short (R) Ilial Tib B
== END 2021-09-25 12:44 | disposition home or self-care (01) ==
LOC: ANHPT 08:00
PROVIDERS: PCP Emergency Medicine; Visit Provider Internal Medicine Medical Oncology
DX: M54.9 Dorsalgia, unspecified (principal); G89.29 Other chronic pain
CPT/HCPCS: 97110; 97112; 97162

== ENCOUNTER 2022-12-11 10:38 | Inpatient (IN) | payer OTHER, MEDICARE, SELFPAY ==
[2022-12-11] VITALS (47 sets, daily range): BP systolic 96–154; BP diastolic 67–102; PULSE 66–136; RESP 13–25; TEMP 36.2–36.4; O2SAT 85–100; BMI 34.2
--- NOTE | ~2022-12-11 | XR_ITS ---
EXAMINATION: XR chest 1V portable DATE: 12/11/2022 12:56 INDICATION: Dizziness. TECHNIQUE: A single frontal view of the chest was obtained on 2 radiographs. COMPARISON: Chest single view 11/19/2019 FINDINGS: There is no pneumonia, pleural effusion, or pneumothorax. The heart size is normal. IMPRESSION: 1. No acute cardiopulmonary disease. Reviewed, dictated and finalized at location A.
--- NOTE | 2022-12-11 10:56 | ECG_ITS ---
Measurements Intervals [place] Rate: 135 P: 173 [place]: 142 QRS: 9 QRSD: 149 T: -15 QT: 308 QTc: 462 Interpretive Statements ATRIAL FLUTTER/TACHYCARDIA WITH RAPID VENTRICULAR RESPONSE RIGHT BUNDLE BRANCH BLOCK ABNORMAL ECG COMPARED TO ECG 11/25/2019 07:04:48 ATRIAL FLUTTER/TACHYCARDIA NOW PRESENT Electronically Signed On 12-11-2022 11:07:32 CDT by Allan Schuler D.O.
[2022-12-11 11:20] LABS: Basophils Percent Auto 0.5 % (0.2-1.2); Eosinophils Absolute Auto 0.1 K/mm3 (0-0.3); Eosinophils Percent Auto 1.8 % (0-4.4); Hematocrit 44.7 % (42.0-52.0); Hemoglobin 14.1 g/dL (14.0-18.0); Immature Granulocyte Absolute 0.02 K/mm3 (0.00-0.031); Immature Granulocyte Percent A 0.5 % (0-0.5); Lymphocytes Absolute Auto 0.61 K/mm3 (0.9-3.2); Lymphocytes Percent Auto 15.3 % (18.3-44.2); Mean Corpuscular HGB Conc 31.5 g/dl (32-36); Mean Corpuscular Hemoglobin 29.5 pg (26-34); Mean Corpuscular Volume 93.5 fl (80-100); Mean Platelet Volume 9.1 fl (7.4-10.4); Monocytes Absolute Auto 0.5 K/mm3 (0.1-0.6); Monocytes Percent Auto 12.3 % (2.6-8.5); Neutrophils Absolute Auto 2.8 K/mm3 (1.3-6.7); Neutrophils Percent Auto 69.6 % (45.5-73.1); Platelet Count Result 218 k/mm3 (150-375); Red Blood Count 4.78 M/mm3 (4.6-6.20)
[2022-12-11 11:32] LABS: Alanine Aminotransferase 34 U/L (6-50); Albumin Level 4.5 g/dL (3.5-5.1); Alkaline Phosphatase 28 U/L (38-126); Anion Gap 6 mmol/L (8-16); Aspartate Amino Transferase 36 U/L (17-59); Bilirubin,Total 0.7 mg/dL (0.2-1.3); Blood Urea Nitrogen 20 mg/dL (9-20); Calcium 8.7 mg/dL (8.4-10.2); Carbon Dioxide 29 mmol/L (22-30); Chloride 106 mmol/L (98-107); Estimated CRCL calculation 95 ml/min; Estimated Glomerular Filt Rate > 60; Glucose 92 mg/dL (65-110); Potassium 4.5 mmol/L (3.4-5.0); Sodium 141 mmol/L (137-145)
--- NOTE | 2022-12-11 12:34 | ED.GENADULT ---
HPI - General Adult General Chief complaint: Recheck/Abnormal Lab/Rx Stated complaint: low BP since friday Time Seen by Provider: 12/11/22 12:32 Source: patient and family Mode of arrival: ambulatory Limitations: no limitations History of Present Illness HPI narrative: 72 years old white male came to the emergency room with his by private car complaining of bouts of lightheadedness, clammy skin, flutters feeling for the last 3 days, worse with standing and activity, better laying down in bed. He denies any fever, chills, nausea, vomiting, chest pain, shortness of breath or having similar symptoms. History of non-Hodgkin lymphoma November 2021 status post 1 year of chemotherapy and 1 year of maintenance of treatment by Dr. Ellison. History of hyperlipidemia, smokes cigarettes, drinks daily, not in antiplatelet or anticoagulant medication Related Data Home Medications Medication Instructions Recorded Confirmed meloxicam 15 mg tablet mg 12/11/22 rosuvastatin 10 mg tablet mg 12/11/22 12/11/22 Allergies Allergy/AdvReac Type Severity Reaction Status Date / Time morphine Allergy Unknown Unknown Verified 12/11/22 11:39 Review of Systems Review of Systems: All systems reviewed & are unremarkable except as noted in HPI and below PMFSH Past Medical History Medical History (Updated 12/11/22 @ 15:54 by Faith Gavin MD) Claustrophobia Hx of adenomatous colonic polyps Hyperlipemia YANICK (obstructive sleep apnea) Skin cancer Vitamin D deficiency Surgical History Surgical History History of back surgery History of bilateral carpal tunnel release History of bilateral knee replacement Hx of colonoscopy Hx of repair of rotator cuff Family History Family History Father Carcinoma of colon, Onset Age: 59 Patient's father is Mother Carcinoma of colon, Onset Age: 69 Patient's mother is Sibling Family history of cardiovascular disease Family history of malignant neoplasm Father Family history of malignant neoplasm, Onset Age: 59 Mother Family history of malignant neoplasm, Onset Age: 72 Social History Social History Years smoked: 30 Smoking status: Light tobacco smoker Tobacco type: cigars Alcohol intake: current Drinks per week: 14 Substance use: never Living arrangements: with family Additional living arrangements comments: Additional occupation/education comments: retired Gender identity (if verbalized by the patient): Male Exam Narrative: General appearance: Well-developed, well-nourished Skin: Normal color Head: Normocephalic, nontraumatic Eyes: Clear conjunctiva ENT: Oropharynx normal, ears normal, nose normal Neck: Supple, nontender Chest and respiratory: Airway patent, no respiratory distress, no accessory muscle use Heart: Tachycardia Abdomen: Soft, nontender, no organomegaly, quiet bowel sounds Vascular: Normal peripheral pulses, normal capillary refill. Musculoskeletal: Normal range of motion, nontender back Neurologic: Alert and oriented ?3, WORKFORCE MANAGER is normal as tested, no gross motor deficit Course Reevaluation(s) Reevaluation #1: Currently is asymptomatic Date: 12/11/22 Time: 15:52 Consultations Consultation #1: DR KUO Date: 12/11/22 Time: 15:52 Vital Signs Vital signs: Vital Signs Temperature 36.3 C L 12/11/22 10:54 Pulse Rate 133 H 12/11/22 10:54 Respiratory Rate 18 12/11/22 10:54 Blood Pressure 96/67 L 12/11/22 10:54 Pulse Oximetry
[2022-12-11] MEDS: dilTIAZem HCl INJ 25 MG/5 ML VIAL 10 MG IV PUSH (12:55)
[2022-12-11] MEDS: dilTIAZem 100 MG/100 ML 100 MG/100 ML BAG IV CONT (12:55)
[2022-12-11 13:05] LABS: NT Pro B Type Natriuretic Pept 1650 pg/mL (19.9-100)
[2022-12-11 13:09] LABS: Prothrombin Time 13.8 Seconds (11.1-14.7)
[2022-12-11 13:10] LABS: Partial Thromboplastin Time 24.7 SECONDS (22.3-36.8)
[2022-12-11 13:11] LABS: Troponin I < 0.012 ng/mL (0.000-0.034)
--- NOTE | 2022-12-11 13:33 | ECG_ITS ---
Measurements Intervals [place] Rate: 72 P: [place]: 0 QRS: 52 QRSD: 134 T: 0 QT: 345 QTc: 379 Interpretive Statements ATRIAL FLUTTER/TACHYCARDIA WITH CONTROLLED VENTRICULAR RATE RIGHT BUNDLE BRANCH BLOCK BASELINE ARTIFACT- I, II, III, AVR, AVL, AVF, V1-V3 ABNORMAL ECG COMPARED TO ECG 12/11/2022 10:59:46 HEART RATE HAS DECREASED Electronically Signed On 12-11-2022 13:48:28 CDT by Allan Schuler D.O.
[2022-12-11] MEDS: ENOXAPARIN 120 MG/0.8 ML SYRINGE SUB-Q (14:06)
[2022-12-11] MEDS: LORazepam INJ (*CRX) 2 MG/ML VIAL 1 MG IV PUSH (14:15)
[2022-12-11 16:02] LABS: Troponin I < 0.012 ng/mL (0.000-0.034)
--- NOTE | 2022-12-11 18:42 | PM.IMHP ---
H&P: HPI History of Present Illness Date/Time: 12/11/22 19:00 Chief Complaint: Dizziness and fluttering in chest. Narrative: This is a very pleasant 72-year-old male with sleep apnea diagnosed 15+ years ago no longer on CPAP due to claustrophobia, non-Hodgkin lymphoma, hyperlipidemia, and arthritis who presented to the emergency department via private vehicle from home for evaluation of dizziness and fluttering in the chest. About 3 days ago he went to stand up from a seated position and he suddenly felt lightheaded and dizzy and he noticed that his heart was racing and fluttering. He was also pale and clammy at that time and reports feeling some tingling in his shoulders. The fluttering in his chest has been constant but seems more noticeable when lying down. He continues to feel lightheaded and dizzy with position changes and due to ongoing symptoms he came in today for evaluation. He denies syncope, focal weakness, facial droop, difficulty speaking and swallowing, chest pain, pleuritic pain, shortness a breath, nausea, vomiting, and lower extremity edema. He has no history of cardiac disease, cardiac dysrhythmia, or thyroid disease. On arrival to the ED he was afebrile, blood pressure was 96/67, and his pulse was 133. EKG showed atrial flutter/tachycardia with rapid ventricular response and right bundle-branch block and he has been started on a diltiazem drip with improvement in his rate. CMP and CBC were relatively unremarkable. TSH was 1.320. Troponin was normal and his proBNP was 1650. Chest x-ray showed no acute cardiopulmonary disease. He is being admitted in this setting for further treatment and Cardiology consultation. Review of Systems Review of Systems: Twelve systems were reviewed. Weight has remained stable. He has not used the CPAP for many years as he is claustrophobic. He does have occasional daytime somnolence but nothing significant. He denies paroxysmal nocturnal dyspnea. states he snores only when lying on his back. She has not noticed any periods of apnea. He is followed by Dr. Ellison for his non-Hodgkin lymphoma and he reports finishing maintenance chemotherapy almost a year ago. He denies lymphadenopathy. No history of DVT. Except as documented, all other systems were reviewed and are negative. [facility], [facility] Past Medical History Medical History (Updated 12/11/22 @ 21:43 by Crystal Hamilton PA-C) Adenomatous colon polyp Claustrophobia Hyperlipemia Non-Hodgkin lymphoma (11/2019) Obstructive sleep apnea Unable to tolerate CPAP due to claustrophobia. Osteoarthritis Skin cancer Vitamin D deficiency Surgical History Surgical History (Updated 12/11/22 @ 21:39 by Crystal Hamilton PA-C) History of back surgery History of bilateral carpal tunnel release History of bilateral knee replacement History of colonoscopy with polypectomy History of lumbar surgery History of repair of right rotator cuff History of vasectomy Family History Family History Father Patient's father is Carcinoma of colon, Onset Age: 59 Mother Patient's mother is Carcinoma of colon, Onset Age: 69 Sibling Family history of cardiovascular disease Family history of malignant neoplasm Lung cancer Father Family history of malignant neoplasm, Onset Age: 59 Mother Family history of malignant neoplasm, Onset Age: 72 Social History Social History (Updated 12/11/22 @ 21:40 by Crystal Hamilton PA-C) Social History: Surrogate medical decision maker: Neida Alexander, spouse. Code status: Full code. Years smoked: 30 Smoking status: Current some day smoker Tobacco type: cigars Additional smoking assessment comments: Smokes a cigar daily, takes him 1 week to finish a cigar. Alcohol intake: current Drinks per week: 7 Alcohol use details: Typically drinks [place] [employer] which has no alcohol, occasiona
[2022-12-11 18:59] LABS: Troponin I < 0.012 ng/mL (0.000-0.034)
--- NOTE | 2022-12-11 20:09 | ADMGEN ---
This patient, Jai Alexander, was admitted to IMU Room 210-01 AT 1940 ON 12/11/2022. Patient/family oriented to hospital policies and general routines including ID bracelet, bed and alarms, visiting hours, pain management, procedures, bathroom and other care routines, personal items, smoking policy, room service/diet, and visiting hours. Information on how to activate the Rapid Response Team has been discussed. Patient/Family are encouraged to report perceived risks to care and to ask questions if they do not understand what they are told or what they should do.
[2022-12-11] MEDS: ALPRAZolam (*CRX) 0.125 MG TABLET PO (22:34)
[2022-12-11 23:30] LABS: D Dimer 0.29 ug/mL (<0.48)
[2022-12-12] VITALS (15 sets, daily range): BP systolic 100–146; BP diastolic 49–75; PULSE 58–107; RESP 16–20; TEMP 36.1–36.5; O2SAT 95–100
[2022-12-12] MEDS: dilTIAZem 100 MG/100 ML 100 MG/100 ML BAG IV CONT (04:24)
[2022-12-12 08:01] LABS: Hematocrit 43.9 % (42.0-52.0); Mean Corpuscular HGB Conc 31.9 g/dl (32-36); Mean Corpuscular Hemoglobin 29.8 pg (26-34); Mean Corpuscular Volume 93.4 fl (80-100); Mean Platelet Volume 8.7 fl (7.4-10.4); Platelet Count Result 200 k/mm3 (150-375); White Blood Count 3.6 K/mm3 (4.5-10.0)
[2022-12-12] MEDS: ENOXAPARIN 40 MG/0.4 ML SYRINGE SUB-Q (08:24)
[2022-12-12] MEDS: ROSUVASTATIN 10 MG TABLET PO (08:24)
[2022-12-12] MEDS: ACIDOPHILUS/BULGARICUS CHEWABLE TABLET 1 TABLET BY MOUTH (08:25)
[2022-12-12] MEDS: CHOLECALCIFEROL 1,000 UNITS TABLET 1000 UNITS PO (08:25)
[2022-12-12 08:29] LABS: Anion Gap 6 mmol/L (8-16); Blood Urea Nitrogen 17 mg/dL (9-20); Calcium 8.8 mg/dL (8.4-10.2); Carbon Dioxide 31 mmol/L (22-30); Chloride 105 mmol/L (98-107); Estimated CRCL calculation 95 ml/min; Estimated Glomerular Filt Rate > 60; Glucose 95 mg/dL (65-110); Magnesium 2.3 mg/dL (1.6-2.3); Potassium 3.9 mmol/L (3.4-5.0); Sodium 142 mmol/L (137-145)
--- NOTE | 2022-12-12 11:16 | PM.CNCAR ---
Assessment and Plan Assessment and plan (1) Atrial flutter with rapid ventricular response: Code(s): I48.92 - Unspecified atrial flutter Status: Acute Assessment and Plan: New onset atrial flutter. Presented with complaints of palpitations and dizziness, was found to be in Aflutter with RVR. He is rate controlled on diltiazem drip currently. Asymptomatic at this time. Shift from IV diltiazem to p.o. Will use short acting diltiazem for now (30mg q6h) and if rate well controlled will transition him to long acting diltiazem at discharge for dosing convenience. CHADs2 Vasc score is 2, anticoagulation is indicated. Will start Xarelto 20mg p.o. tonight Check echo TSH WNL After he has been anticoagulated for 4-6 weeks, can discuss DCCV as outpatient Compliance with CPAP important for ongoing management of his arrhythmia Anticipate discharge in the next 24 hours if he remains rate controlled on oral Diltiazem History of Present Illness History of Present Illness Consult date/time: 12/12/22 11:16 Requesting physician: Faith Gavin MD Consult reason: Other (atrial flutter) Reason For Visit: new onset a flutter with rvr Narrative: Mr. Alexander is a very pleasant 72-year-old male with a medical history of obstructive sleep apnea not on CPAP, non-Hodgkin lymphoma, hyperlipidemia, and arthritis. This is a patient who presented to the emergency department with a chief complaint of a sensation of fluttering in the chest. He had also been experiencing dizziness especially when he was transitioning from a seated to a standing position for about 3 days. Patient also reports feeling cool, clammy, and pale over the past few days. Because of these symptoms he was encouraged by his to come to the emergency department for evaluation. Upon being placed on telemetry, he was noted to be in atrial flutter with rapid ventricular response. He was initially treated with IV bolus of diltiazem and placed on a diltiazem drip. His rate is currently controlled in the 90s and he no longer is experiencing any palpitations or dizziness. He does not have any cardiac history and denies any history of chest pain, swelling, syncope, presyncope, or orthopnea. Currently, he is lying comfortably in his bed and has no complaints. Review of Systems Review of Systems: All systems reviewed & are unremarkable except as noted in HPI and below PMFSH Past Medical History Medical History Adenomatous colon polyp Claustrophobia Hyperlipemia Non-Hodgkin lymphoma (11/2019) Obstructive sleep apnea Unable to tolerate CPAP due to claustrophobia. Osteoarthritis Skin cancer Vitamin D deficiency Surgical History Surgical History History of back surgery History of bilateral carpal tunnel release History of bilateral knee replacement History of colonoscopy with polypectomy History of lumbar surgery History of repair of right rotator cuff History of vasectomy Family History Family History Father Patient's father is Carcinoma of colon, Onset Age: 59 Mother Patient's mother is Carcinoma of colon, Onset Age: 69 Sibling Family history of cardiovascular disease Family history of malignant neoplasm Lung cancer Father Family history of malignant neoplasm, Onset Age: 59 Mother Family history of malignant neoplasm, Onset Age: 72 Social History Social History Social History: Surrogate medical decision maker: Neida Alexander, spouse. Code status: Full code. Years smoked: 30 Smoking status: Current some day smoker Tobacco type: cigars Additional smoking assessment comments: Smokes a cigar daily, takes him 1 week to finish a cigar. Alcohol intake: curr
--- NOTE | 2022-12-12 12:15 | PM.IMPN ---
Progress Note: A&P Assessment and Plan (1) Atrial flutter with rapid ventricular response: Code(s): I48.92 - Unspecified atrial flutter Status: Acute Assessment and Plan: Rate is controlled now. tSH is within normal limits. Cardizem drip may be discontinued. Will defer to Cardiology. echocardiogram ordered. (2) Obstructive sleep apnea: Code(s): G47.33 - Obstructive sleep apnea (adult) (pediatric) Status: Acute Assessment and Plan: Apnea link ordered. (3) Hyperlipemia: Code(s): E78.5 - Hyperlipidemia, unspecified Status: Acute Assessment and Plan: Continue statin, LFTs within normal limits. (4) Non-Hodgkin lymphoma: Onset Date: 11/2019 Code(s): C85.90 - Non-Hodgkin lymphoma, unspecified, unspecified site Status: Acute Assessment and Plan: Diagnosed in November 2019. Finished chemo and maintenance chemo last year. Followed by Dr. Ellison. Subjective Date/time seen: 12/12/22 12:15 Interval history: Currently asymptomatic Review of Systems Review of Systems: All systems reviewed & are unremarkable except as noted in HPI and below Exam Const: General: comfortable, no acute distress, alert and awake Orientation/consciousness: patient oriented x3 HENMT: Head: normal to inspection Eyes: General: appearance normal, both eyes and all related structures Pupils: Equal, round and reactive pupils present Neck: Neck: normal visual inspection, supple and no JVD Thyroid: thyroid normal Carotids: normal carotid upstroke Resp: Effort & Inspection: normal respiratory effort Auscultation: clear to auscultation bilaterally Cardio: Rate: regular rate Rhythm: abnormal rhythm irregularly irregular Heart sounds: S1 normal heart sound present, S2 normal heart sound present and no murmurs GI: Auscultation: normal bowel sounds Skin: General skin exam: normal color Neuro: General: patient oriented x3 Cranial nerves: Yes Equal, round and reactive pupils present Extrem: General: normal to inspection Other: No edema Psych: Appearance: grossly normal Mental Status: mental status grossly normal Objective Data Vital Signs Vital Signs: Vital Signs - 24 hr 12/11/22 12:55 12/11/22 14:45 12/11/22 13:45 Temperature Pulse Rate 136 H 70 92 Respiratory Rate 16 20 Blood Pressure 111/92 H 101/71 126/86 Pulse Oximetry 96 98 Oxygen Delivery 12/11/22 12:34 12/11/22 12:35 12/11/22 12:45 Temperature Pulse Rate 135 H 133 H 133 H Respiratory Rate 18 18 20 Blood Pressure 106/85 111/92 H Pulse Oximetry Oxygen Delivery 12/11/22 12:46 12/11/22 13:00 12/11/22 13:03 Temperature Pulse Rate 134 H 103 H 125 H Respiratory Rate 20 18 19 Blood Pressure 129/83 Pulse Oximetry 98 99 Oxygen Delivery 12/11/22 13:22 12/11/22 13:30 12/11/22 13:31 Temperature Pulse Rate 91 91 92 Respiratory Rate 16 17 16 Blood Pressure 108/74 Pulse Oximetry 98 97 98 Oxygen Delivery 12/11/22 13:46 12/11/22 13:47 12/11/22 14:00 Temperature Pulse Rate 104 H 103 H 93 Respiratory Rate 19 17 21 H Blood Pressure 126/86 Pulse Oximetry 99 99 99 Oxygen Delivery 12/11/22 14:25 12/11/22 14:30 12/11/22 14:31 Temperature Pulse Rate 110 H 76 79 Respiratory Rate Blood Pressure 117/78 Pulse Oximetry 95 98 95 Oxygen Delivery 12/11/22 14:52 12/11/22 15:03 12/11/22 15:23 Temperature Pulse Rate 73 76 75 Respiratory Rate Blood Pressure Pulse Oximetry 99 99 96 Oxygen Delivery 12/11/22 15:30 12/11/22 15:54 12/11/22 16:01 Temperature Pulse Rate 69 124 H Respiratory Rate Blood Pressure Pulse Oximetry 95 99 Oxygen Delivery 12/11/22 16:15 12/11/22 16:30 12/11/22 16:45 Temperature Pulse Rate 90 94 69 Respiratory Rate Blood Pressure Pulse Oximetry 99 97 98 Oxygen Delivery 12/11/22 17:03 12/11/22 17:15 12/11/22 17:31 [place]
[2022-12-12] MEDS: dilTIAZem HCL 30 MG TABLET PO ×2 (12:55→17:23)
[2022-12-12] MEDS: ALPRAZolam (*CRX) 0.125 MG TABLET PO (20:45)
[2022-12-12] MEDS: APIXABAN 5 MG TABLET PO (20:45)
--- NOTE | 2022-12-12 21:47 | ECHO_ITS ---
Patient Info Name: Jai Alexander Age: 72 years : 1950 Gender: Male Ht: 73 in Wt: 259 lbs BSA: 2.50 m2 HR: 66 bpm BP: 122 / 72 mmHg Heart Rhythm: Atrial Flutter Technical Quality: Fair Exam Date: 12/12/2022 11:37 AM Exam Location: [facility] Patient Status: Inpatient Admit Date: 12/11/2022 Staff Ordering Physician: Crystal Hamilton PA-C Carroter: Jose Luis Blount RDCS Attending Provider: Godwin Keller MD Referring Physician: Alfonso DOUGHERTY; Exam Type: CA echo doppler color flow Study Info Indications - new onset atraial flutter Complete two-dimensional, color flow and Doppler transthoracic echocardiogram is performed. Summary 1. Complete two-dimensional, color flow and Doppler transthoracic echocardiogram is performed. 2. Left ventricular chamber dimension is normal. 3. Left ventricular systolic function is at lower limits of normal, estimated at 50-55%. 4. There is mildly increased left ventricular wall thickness. 5. The left ventricular diastolic function is grade I diastolic dysfunction. 6. Right ventricular systolic function is normal. 7. There is trace mitral valve regurgitation. 8. There is trace tricuspid valve regurgitation. 9. There is trace pulmonic regurgitation. Left Ventricle Left ventricular chamber dimension is normal. Left ventricular systolic function is at lower limits of normal, estimated at 50-55%. There is mildly increased left ventricular wall thickness. The left ventricular diastolic function is grade I diastolic dysfunction. Right Ventricle Right ventricular chamber dimension is normal. Right ventricular systolic function is normal. Left Atria Left atrial chamber dimension is normal. Right Atria Right atrial chamber dimension is mildly enlarged. Atrial Septum Intact interatrial septum visualized by color flow imaging. Aortic Valve The aortic valve is trileaflet. There is no aortic valve stenosis. There is no aortic valve regurgitation. Pulmonic Valve The pulmonic valve is not well visualized. There is trace pulmonic regurgitation. Mitral Valve There is no mitral valve stenosis. There is trace mitral valve regurgitation. The mitral valve annulus is mildly calcified. Tricuspid Valve There is trace tricuspid valve regurgitation. Pericardium/Pleural There is trivial anterior pericardial effusion. Inferior Vena Cava Inferior vena cava is not well visualized. Aorta The aortic root size at the sinus of Valsalva is normal. Left Ventricular Outflow Tract Name Value Normal LVOT 2D LVOT Diameter 2.3 cm LVOT Doppler LVOT Peak Gradient 2 mmHg LVOT Mean Gradient 1 mmHg LVOT VTI 14 cm LVOT VTI/AV VTI Ratio 0.9 LVOT Stroke Volume 56 ml LVOT CO 3.8 l/min LVOT CI 1.5 l/min/m2 Pulmonic Valve Name Value Normal RVOT Doppler ----
[2022-12-13] VITALS (7 sets, daily range): BP systolic 140–143; BP diastolic 87–93; PULSE 65–115; RESP 16–18; TEMP 36.1–37; O2SAT 98–99
[2022-12-13] MEDS: dilTIAZem HCL 30 MG TABLET PO ×2 (00:48→05:50)
--- NOTE | 2022-12-13 01:52 | PC.NURSE ---
Per Doctor order to D/C Diltiazem gtt one hour after first dose of p.o diltiazem.
--- NOTE | 2022-12-13 04:33 | ECG_ITS ---
Measurements Intervals [place] Rate: 68 P: LA: 0 QRS: 27 QRSD: 157 T: -14 QT: 390 QTc: 417 Interpretive Statements ATRIAL FLUTTER WITH CONTROLLED VENTRICULAR RATE RIGHT BUNDLE BRANCH BLOCK ABNORMAL ECG COMPARED TO ECG 12/11/2022 13:38:00 NO SIGNIFICANT CHANGES Electronically Signed On 12-13-2022 6:41:23 CDT by Allan Schuler D.O.
[2022-12-13] MEDS: CHOLECALCIFEROL 1,000 UNITS TABLET 1000 UNITS PO (09:43)
[2022-12-13] MEDS: APIXABAN 5 MG TABLET PO (09:43)
[2022-12-13] MEDS: ACIDOPHILUS/BULGARICUS CHEWABLE TABLET 1 TABLET BY MOUTH (09:44)
[2022-12-13] MEDS: ROSUVASTATIN 10 MG TABLET PO (09:44)
--- NOTE | 2022-12-13 10:19 | PM.PNCARD ---
Progress Note: A&P Assessment and Plan (1) Atrial flutter with rapid ventricular response: Code(s): I48.92 - Unspecified atrial flutter <JORGE Cai - Last Filed: 12/13/22 10:23> Status: Acute <JORGE Cai - Last Filed: 12/13/22 10:23> Assessment and Plan: New onset atrial flutter. Presented with complaints of palpitations and dizziness, was found to be in Aflutter with RVR. He is rate controlled on p.o. Diltiazem. Asymptomatic at this time. Continue Diltizem at current dose, shift to long acting for dosing convenience (120mg daily) CHADs2 Vasc score is 2, anticoagulation is indicated. Continue a/c with Eliquis 5mg b.i.d. Echo showed EF at lower limits of normal, 50-55%. Trace MR, TR, and pulmonic regurgitation After he has been anticoagulated for 4-6 weeks, can discuss DCCV as outpatient Outpatient sleep study OK for discharge today <JORGE Cai - Last Filed: 12/13/22 10:23> Assessment and Plan: Attending addendum: I agree with above documentation and plan of care as outlined. <Joey Hallman MD - Last Filed: 12/13/22 14:35> Subjective Date/time seen: 12/13/22 10:19 Cardiology follow up for atrial flutter <JORGE Cai - Last Filed: 12/13/22 10:23> Interval history: Patient remains in atrial flutter rate controlled on p.o. diltiazem. Feels well this morning and has no complaints of any kind. Ready to go home. <JORGE Cai - Last Filed: 12/13/22 10:23> Review of Systems Review of Systems: All systems reviewed & are unremarkable except as noted in HPI and below <JORGE Cai - Last Filed: 12/13/22 10:23> Exam Const: General: comfortable, no acute distress, alert and awake <JORGE Cai - Last Filed: 12/13/22 10:23> Orientation/consciousness: patient oriented x3 <JORGE Cai - Last Filed: 12/13/22 10:23> HENMT: Head: normal to inspection <JORGE Cai - Last Filed: 12/13/22 10:23> Eyes: General: appearance normal, both eyes and all related structures <JORGE Cai - Last Filed: 12/13/22 10:23> Pupils: Equal, round and reactive pupils present <JORGE Cai - Last Filed: 12/13/22 10:23> Neck: Neck: normal visual inspection, supple and no JVD <JORGE Cai - Last Filed: 12/13/22 10:23> Thyroid: thyroid normal <JORGE Cai - Last Filed: 12/13/22 10:23> Carotids: normal carotid upstroke <JORGE Cai - Last Filed: 12/13/22 10:23> Resp: Effort & Inspection: normal respiratory effort <JORGE Cai - Last Filed: 12/13/22 10:23> Auscultation: clear to auscultation bilaterally <JORGE Cai - Last Filed: 12/13/22 10:23> Cardio: Rate: regular rate <JORGE Cai - Last Filed: 12/13/22 10:23> Rhythm: abnormal rhythm irregularly irregular <JORGE Cai - Last Filed: 12/13/22 10:23> Heart sounds: S1 normal heart sound present, S2 normal heart sound present and no murmurs <JORGE Cai - Last Filed: 12/13/22 10:23> GI: Auscultation: normal bowel sounds <JORGE Cai - Last Filed: 12/13/22 10:23> Skin: General skin exam: normal color <JORGE Cai - Last Filed: 12/13/22 10:23> Neuro: General: patient oriented x3 <JORGE Cai - Last Filed: 12/13/22 10:23> Cranial nerves: Yes Equal, round and reactive pupils present <JORGE Cai - Last Filed: 12/13/22 10:23> Extrem: General: normal to inspection <JORGE Cai - Last Filed: 12/13/22 10:23> Other: No edema <JORGE Cai - Last Filed: 12/13/22 10:23> Psych: Appearance: grossly normal <JORGE Cai - Last Filed: 12/13/22 10:23> Mental Status: mental status grossly normal <JORGE Cai - Last Filed: 12/13/22 10:23> Objective Data Vital Signs Vital Signs: Vital Signs - 24 hr 12/12/22 12:00 12/12/22 12:00 12/12/22 14:00 Temperature 36.
--- NOTE | 2022-12-13 10:37 | PM.DS ---
DS: Admitting Diagnosis Discharge Date 12/13/2022 Admitting Diagnosis AFib without any DS: Discharge Diagnosis Discharge Diagnosis (1) Atrial flutter with rapid ventricular response: Code(s): I48.92 - Unspecified atrial flutter Status: Acute (2) Obstructive sleep apnea: Code(s): G47.33 - Obstructive sleep apnea (adult) (pediatric) Status: Acute DS: Summary Hospital Course Hospital Course: (1) Atrial flutter with rapid ventricular response: New onset atrial flutter.? Presented with complaints of palpitations and dizziness, was found to be in Aflutter with RVR.? Cardiology was consulted. he is rate controlled on p.o. Diltiazem. Asymptomatic at this time. Continue Diltizem long acting for dosing convenience (120mg daily) CHADs2 Vasc score is 2, anticoagulation is indicated.? Continue a/c with Eliquis 5mg b.i.d. Echo showed EF at lower limits of normal, 50-55%.? Trace MR, TR, and pulmonic regurgitation After he has been anticoagulated for 4-6 weeks, can discuss DCCV as outpatient Outpatient sleep study OK for discharge today Time Spent with Patient Time attestation: Total time spent providing and/or coordinating discharge services: Exam Const: General: comfortable, no acute distress, alert and awake Orientation/consciousness: patient oriented x3 HENMT: Head: normal to inspection Eyes: General: appearance normal, both eyes and all related structures Pupils: Equal, round and reactive pupils present Neck: Neck: normal visual inspection, supple and no JVD Thyroid: thyroid normal Carotids: normal carotid upstroke Resp: Effort & Inspection: normal respiratory effort Auscultation: clear to auscultation bilaterally Cardio: Rate: regular rate Rhythm: abnormal rhythm irregularly irregular Heart sounds: S1 normal heart sound present, S2 normal heart sound present and no murmurs GI: Auscultation: normal bowel sounds Skin: General skin exam: normal color Neuro: General: patient oriented x3 Cranial nerves: Yes Equal, round and reactive pupils present Extrem: General: normal to inspection Other: No edema Psych: Appearance: grossly normal Mental Status: mental status grossly normal Discharge Plan Discharge Consulting providers: Eileen Jewell Discharging Clinician: Neil Milan Anticipated Discharge Date/Time: 12/13/22 10:36 Patient Disposition: Home, Self-Care Activity: no preference Diet: heart healthy Patient Instructions: Antibiotic Form Stand Alone Forms: General Discharge Information Follow-up/Referrals: Benjamín,Nuvia Bhatt MD [Primary Care Provider] - Eileen Jewell MD [Physician] - Discharge Medications: New Eliquis 5 mg Tablet 5 mg PO Q12HR 30 Days Qty: 60 1RF diltiazem HCl 120 mg capsule,extended release 24 hr 120 mg PO DAILY Qty: 30 1RF Continued rosuvastatin 10 mg tablet 10 mg PO DAILY psyllium husk [Metamucil] 0.4 gram Capsule 0.4 g PO DAILY Daily Probiotic 2.5 billion cell Capsule 1 cap PO DAILY Vitamin D3 1 cap BYMOUTH DAILY Discontinued Benefiber (guar gum) 1 gram Tablet,Chewable 1 g PO DAILY Date of admission: 12/11/22 15:54 Primary Care Provider: Benjamín,Nuvia Bhatt Admitting Provider: Godwin Keller Attending physician on admission: Godwin Keller Condition: Stable
== END 2022-12-13 11:58 | disposition home or self-care (01) | DRG 309 ==
LOC: ANHED 15:54 → ANHIMU 12-12 10:25
PROVIDERS: Emergency Medicine; Physician Assistant; Admitting Provider Internal Medicine; Emergency Provider Emergency Medicine; PCP Internal Medicine; Visit Provider Hospitalist
DX: I48.92 Unspecified atrial flutter (principal); C85.90 Non-Hodgkin lymphoma, unspecified, unspecified site; E78.5 Hyperlipidemia, unspecified; E55.9 Vitamin D deficiency, unspecified; G47.33 Obstructive sleep apnea (adult) (pediatric); F17.290 Nicotine dependence, other tobacco product, uncomplicated; F40.240 Claustrophobia; Z96.653 Presence of artificial knee joint, bilateral; Z86.010 Personal history of colon polyps
CPT/HCPCS: 36415; 71045; 80048; 80053; 83735; 83880; 84443; 84484; 85025; 85027; 85380; 85610; 85730; 93005; 93306; 94762; 96365; 96366; 96372; 96375; 99285; A9270; J1650; J2060

== ENCOUNTER 2023-01-08 01:56 | Day surgery (SDC) | payer MEDICARE, SELFPAY ==
[2023-01-07 15:44] VITALS: BMI 35.2
[2023-01-08] VITALS (10 sets, daily range): BP systolic 97–144; BP diastolic 54–86; PULSE 53–101; RESP 11–24; O2SAT 95–100
--- NOTE | 2023-01-08 10:00 | ECG_ITS ---
Measurements Intervals [place] Rate: 52 P: 43 IA: 222 QRS: 34 QRSD: 169 T: 28 QT: 415 QTc: 386 Interpretive Statements SINUS BRADYCARDIA WITH FIRST DEGREE AV BLOCK RIGHT BUNDLE BRANCH BLOCK [120+ ms QRS DURATION, UPRIGHT V1, 40+ ms S IN I/aVL/V4/V5/V6] COMPARED TO ECG 01/08/2023 10:20:35 SINUS BRADYCARDIA NOW PRESENT FIRST DEGREE AV BLOCK NOW PRESENT Electronically Signed On 01-08-2023 19:54:54 CDT by Sania Carlson M.D.
[2023-01-08 11:10] LABS: Anion Gap 4 mmol/L (8-16); Blood Urea Nitrogen 19 mg/dL (9-20); Calcium 8.9 mg/dL (8.4-10.2); Carbon Dioxide 31 mmol/L (22-30); Chloride 106 mmol/L (98-107); Estimated CRCL calculation 94 ml/min; Estimated Glomerular Filt Rate > 60; Glucose 97 mg/dL (65-110); Magnesium 2.4 mg/dL (1.6-2.3); Potassium 4.3 mmol/L (3.4-5.0); Sodium 141 mmol/L (137-145)
--- NOTE | 2023-01-08 12:00 | ECG_ITS ---
Measurements Intervals [place] Rate: 89 P: CT: 0 QRS: 41 QRSD: 161 T: -42 QT: 363 QTc: 444 Interpretive Statements ATRIAL FLUTTER INDETERMINATE AXIS RIGHT BUNDLE BRANCH BLOCK [120+ ms QRS DURATION, UPRIGHT V1, 40+ ms S IN I/aVL/V4/V5/V6] COMPARED TO ECG 12/13/2022 04:42:10 NO SIGNIFICANT CHANGES Electronically Signed On 01-08-2023 19:53:32 CDT by Sania Carlson M.D.
--- NOTE | 2023-01-08 12:40 | WPDHPUPDATE1 ---
History and Physical Update Update Date/Time: 01/08/23 12:40 History and Physical has been reviewed, including an updated exam of the patient. There are NO changes in the patient's condition. Risks, benefits, and alternatives have been discussed and questions answered. Patient agrees to proceed with procedure.
--- NOTE | 2023-01-08 12:40 | WPDMODSED ---
Moderate Sedation Note-Pt Data Patient Data Diagnosis: Atrial flutter Present Complaint: Atrial flutter Procedure to be performed/Plan: Cardioversion Allergies Allergy/AdvReac Type Severity Reaction Status Date / Time morphine AdvReac Intermediate Vomiting Verified 01/07/23 16:05 Home Medications Medication Instructions Recorded Confirmed Type Lactobacillus 1 cap PO DAILY 12/11/22 01/07/23 History acidophilus-Bifidobac.animalis 2.5 billion cell capsule (Daily Probiotic) psyllium husk 0.4 gram capsule 0.4 g PO DAILY 12/11/22 01/07/23 History (Metamucil) rosuvastatin 10 mg tablet 10 mg PO DAILY 12/11/22 01/07/23 History apixaban 5 mg tablet (Eliquis) 5 mg PO Q12HR 30 days #60 tabs 12/13/22 01/07/23 Rx diltiazem HCl 120 mg capsule,24 120 mg PO DAILY #30 caps 12/13/22 01/07/23 Rx hr,extended release cholecalciferol (vitamin D3) 25 25 mcg PO DAILY 01/07/23 01/07/23 History mcg (1,000 unit) tablet (Vitamin D3) tamsulosin 0.4 mg capsule 0.4 mg PO DAILY 01/07/23 01/07/23 History Current Medications: Active Medications Sodium Chloride (Normal Saline Iv) 1,000 mls @ 30 mls/hr IV CONT .Q24H MARY BETH Sedation/Anesthesia: No previous sedation/anesthesia problems (including family history). [facility] Past Medical History Medical History Adenomatous colon polyp Claustrophobia Hyperlipemia Non-Hodgkin lymphoma (11/2019) Obstructive sleep apnea Unable to tolerate CPAP due to claustrophobia. Osteoarthritis Skin cancer Vitamin D deficiency Surgical History Surgical History History of back surgery History of bilateral carpal tunnel release History of bilateral knee replacement History of colonoscopy with polypectomy History of lumbar surgery History of repair of right rotator cuff History of vasectomy Family History Family History Father Patient's father is Carcinoma of colon, Onset Age: 59 Mother Patient's mother is Carcinoma of colon, Onset Age: 69 Sibling Family history of cardiovascular disease Family history of malignant neoplasm Lung cancer Father Family history of malignant neoplasm, Onset Age: 59 Mother Family history of malignant neoplasm, Onset Age: 72 Social History Social History Social History: Surrogate medical decision maker: Neida Alexander, spouse. Code status: Full code. Years smoked: 30 Smoking status: Current some day smoker Tobacco type: cigars Second hand tobacco smoke exposure: No Additional smoking assessment comments: Smokes a cigar daily, takes him 1 week to finish a cigar. Alcohol intake: current Drinks per week: 3 Alcohol use details: Typically drinks [place] Zero which has no alcohol, occasional wine or bourbon. Substance use: never Substance use type: does not use Lack of Transportation: No Lack of Food: Never True Current Housing: I Have Housing Concerned About Future Housing: No Difficulty Paying Gas/Electric Bills: No Difficulty Paying for Meds: No Currently Unemployed: No Education: High School Diploma/GED Difficulty w/ Childcare or Family Care: No Living arrangements: with family Additional living arrangements comments: Lives with spouse in [place]. 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 Spiritual care concerns: No Mod Sed Physical Exam Physical Exam Pre Procedural Exam: Normal: Appearance, Lungs, Heart Rate, Heart Rhythm, Neuro Exam, Extremities and Skin Hours since solid foods: 12 Hours since liquid intake: 8 Mallampati Classification: class III Internal Medicine - PN: Obj Da Vital Signs Vital Signs: Vital Signs - 24 hr 01/08/23 12:15 01/08/23 12:26 01/08/23 12:20 Pulse Rate 101 H 80
--- NOTE | 2023-01-08 12:41 | WPDCARDVER ---
Cardioversion Cardioversion Date of procedure: 01/08/23 Procedure: Cardioversion Pre-op diagnosis: Atrial flutter Post-op diagnosis: Other (Sinus rhythm ) Indications: Atrial flutter Description of procedure: Written informed consent obtained. Patient brought to chest pain center. Defibrillator pads placed in an anterior posterior position. Patient was hemodynamically monitored throughout the procedure. Time out performed. IV sedation administered. Once patient was adequately sedated, he was cardioverted with 1 shock at 250 joules. Sinus rhythm restored. No periprocedural complications. Procedure start time: 12:15 Procedure end time: 12:37 Total procedure time: 22 minutes Sedation: Total of 130mg of IV Propofol was administered. Sedation administered by BORA Schultz. Findings: Successful synchronized electrical cardioversion with 1 shock at 250 joules with anabaptism of sinus rhythm. Conclusion: Successful synchronized electrical cardioversion with 1 shock at 250 joules with anabaptism of sinus rhythm.
== END 2023-01-08 13:47 | disposition home or self-care (01) ==
PROVIDERS: PCP Internal Medicine; Visit Provider Internal Medicine
PROC: 5A2204Z Restoration of Cardiac Rhythm, Single (ICD-10-PCS; principal; 2023-01-08 11:30)
DX: I48.92 Unspecified atrial flutter (principal); E78.5 Hyperlipidemia, unspecified; G47.33 Obstructive sleep apnea (adult) (pediatric); E55.9 Vitamin D deficiency, unspecified; Z85.72 Personal history of non-Hodgkin lymphomas; Z79.01 Long term (current) use of anticoagulants; F17.290 Nicotine dependence, other tobacco product, uncomplicated
CPT/HCPCS: 36415; 80048; 83735; 92960; J2250; J2704; J3010; J7030

== ENCOUNTER 2023-03-14 01:09 | Day surgery (SDC) | payer MEDICARE, SELFPAY ==
--- NOTE | 2022-12-26 10:40 | SUR.PREOP ---
1000 Patient's chart reviewed with Dr. Pacheco. Dr. Pacheco wants the patient to have the cardioversion done and stable prior to having his GI procedure.
--- NOTE | 2022-12-26 10:58 | PC.NURSE ---
Pt. chart sent to anesthesia, Dr. Pacheco for review. After reviewing Anesthesia wants procedure postponed until cardiac issues are address to optimal. Pt called and rescheduled to end of January, pt was fine with doing this and agrees his heart issues are priority. Spoke with Bridgett SAHNI in cardiology at Dr. Frank office and updated we are postponing colonoscopy.
--- NOTE | 2023-02-07 14:09 | PC.NURSE ---
PT CALLED WANTED TO RESCHED. TILL AFTER HIS CARDIOLOGY APPT. ON 02/14/2023. PT IS RESCHED. TO 03/14/2023
[2023-03-06 14:33] VITALS: BMI 32.7
[2023-03-14 06:20] VITALS: BP 143/80; PULSE 75; RESP 20; TEMP 36.2; O2SAT 99; BMI 32.5
--- NOTE | 2023-03-14 06:23 | WPDANESEPPF ---
Anes - Initial Pre Proc Eval Procedure: Operation Date: 03/14/23 07:30 Proposed Procedures p Colonoscopy - Yadiel Simon MD Date/Time: 03/14/23 06:23 Surgeon: Yadiel Simon MD Pre Op Diagnosis: hx colon polyps, family hx colon ca Patient Data Age: 72 Gender: M Height: 1.85 m Weight: 111.8 kg Last Vital Signs Temp 36.2 C L 03/14/23 06:20 Pulse 75 03/14/23 06:20 Resp 20 03/14/23 06:20 BP 143/80 H 03/14/23 06:20 Pulse Ox 99 03/14/23 06:20 O2 Del Method Room Air 03/14/23 06:20 Allergies Allergy/AdvReac Type Severity Reaction Status Date / Time morphine AdvReac Intermediate Vomiting Verified 03/14/23 06:19 Home Medications Medication Instructions Recorded Confirmed Type rosuvastatin 10 mg tablet 10 mg PO DAILY 12/11/22 03/06/23 History cholecalciferol (vitamin D3) 25 25 mcg PO DAILY 01/07/23 03/06/23 History mcg (1,000 unit) tablet (Vitamin D3) tamsulosin 0.4 mg capsule 0.4 mg PO DAILY 01/07/23 03/06/23 History Bifidobacterium infantis 4 mg 4 mg PO DAILY 03/06/23 03/06/23 History capsule (Align) Fiberwell 5 g PO DAILY 03/06/23 03/06/23 History Metamucil 3 g PO DAILY 03/06/23 03/06/23 History Patient hx anesthesia problems: none Family hx anesthesia problems: none Results Review: All pre-operative results and documents have been reviewed as part of the pre-operative evaluation. [facility] Past Medical History Medical History (Updated 03/14/23 @ 06:23 by Celso Hernandez MD) Adenomatous colon polyp Claustrophobia History of cardioversion Hyperlipemia Non-Hodgkin lymphoma (11/2019) Obstructive sleep apnea Unable to tolerate CPAP due to claustrophobia. Osteoarthritis Skin cancer Vitamin D deficiency Surgical History Surgical History History of back surgery History of bilateral carpal tunnel release History of bilateral knee replacement History of colonoscopy with polypectomy History of lumbar surgery History of repair of right rotator cuff History of vasectomy Family History Family History Father Patient's father is Carcinoma of colon, Onset Age: 59 Mother Patient's mother is Carcinoma of colon, Onset Age: 69 Sibling Family history of cardiovascular disease Family history of malignant neoplasm Lung cancer Father Family history of malignant neoplasm, Onset Age: 59 Mother Family history of malignant neoplasm, Onset Age: 72 Social History Social History Social History: Surrogate medical decision maker: Neida Alexander, spouse. Code status: Full code. Years smoked: 30 Smoking status: Current some day smoker Tobacco type: cigars Second hand tobacco smoke exposure: No Additional smoking assessment comments: Smokes a cigar daily, takes him 1 week to finish a cigar. Alcohol intake: current Drinks per week: 2 Alcohol use details: BEER Substance use: never Substance use type: does not use Lack of Transportation: No Lack of Food: Never True Current Housing: I Have Housing Concerned About Future Housing: No Difficulty Paying Gas/Electric Bills: No Difficulty Paying for Meds: No Currently Unemployed: No Education: High School Diploma/GED Difficulty w/ Childcare or Family Care: No Living arrangements: with family Additional living arrangements comments: Lives with spouse in [place]. 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 Spiritual care concerns: No Anes - Eval Final PreProcedure Day of Procedure 03/14/23 06:23 Patient weight: obese Heart: regular rate and rhythm Lungs: clear to auscultation Airway: Mallampati scale class II Neurological: alert and oriented Last oral intake: >/= 8 hours ASA classification: III Emergent: no Anesthetic plan:
[2023-03-14] MEDS: LACTATED RINGERS 1,000 ML 150 ML IV CONT (06:42)
--- NOTE | 2023-03-14 07:16 | PM.HPGS ---
History of Present Illness History of Present Illness Consent: Risks, benefits, and alternatives have been discussed and questions answered. Patient agrees to proceed with procedure. Chief complaint: hx colon polyps, family hx colon ca Narrative: Jai Alexander is a 72 year old male Presents for screening colonoscopy. Patient's current weight appetite and bowel movements are normal. Patient denies abdominal pain. He has had no bleeding. Family history is significant both mother and father have had colon cancer. Patient himself has had colon polyps in the past. He presents today for neoplasia screening colonoscopy. Review of Systems Review of Systems: Review of systems noncontributory. [facility] Past Medical History Medical History (Updated 03/14/23 @ 07:18 by Yadiel Simon MD) Adenomatous colon polyp Claustrophobia History of cardioversion Hyperlipemia Non-Hodgkin lymphoma (11/2019) Obstructive sleep apnea Unable to tolerate CPAP due to claustrophobia. Osteoarthritis Skin cancer Vitamin D deficiency Surgical History Surgical History History of back surgery History of bilateral carpal tunnel release History of bilateral knee replacement History of colonoscopy with polypectomy History of lumbar surgery History of repair of right rotator cuff History of vasectomy Family History Family History Father Patient's father is Carcinoma of colon, Onset Age: 59 Mother Patient's mother is Carcinoma of colon, Onset Age: 69 Sibling Family history of cardiovascular disease Family history of malignant neoplasm Lung cancer Father Family history of malignant neoplasm, Onset Age: 59 Mother Family history of malignant neoplasm, Onset Age: 72 Social History Social History Social History: Surrogate medical decision maker: Neida Alexander, spouse. Code status: Full code. Years smoked: 30 Smoking status: Current some day smoker Tobacco type: cigars Second hand tobacco smoke exposure: No Additional smoking assessment comments: Smokes a cigar daily, takes him 1 week to finish a cigar. Alcohol intake: current Drinks per week: 2 Alcohol use details: BEER Substance use: never Substance use type: does not use Lack of Transportation: No Lack of Food: Never True Current Housing: I Have Housing Concerned About Future Housing: No Difficulty Paying Gas/Electric Bills: No Difficulty Paying for Meds: No Currently Unemployed: No Education: High School Diploma/GED Difficulty w/ Childcare or Family Care: No Living arrangements: with family Additional living arrangements comments: Lives with spouse in [place]. 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 Spiritual care concerns: No Meds Home Medications and Allergies Home Medications Medication Instructions Recorded Confirmed Type rosuvastatin 10 mg tablet 10 mg PO DAILY 12/11/22 03/06/23 History cholecalciferol (vitamin D3) 25 25 mcg PO DAILY 01/07/23 03/06/23 History mcg (1,000 unit) tablet (Vitamin D3) tamsulosin 0.4 mg capsule 0.4 mg PO DAILY 01/07/23 03/06/23 History Bifidobacterium infantis 4 mg 4 mg PO DAILY 03/06/23 03/06/23 History capsule (Align) Fiberwell 5 g PO DAILY 03/06/23 03/06/23 History Metamucil 3 g PO DAILY 03/06/23 03/06/23 History Allergies Allergy/AdvReac Type Severity Reaction Status Date / Time morphine AdvReac Intermediate Vomiting Verified 03/14/23 06:19 Vital Signs Vital Signs - 24 hr 03/14/23 06:20 Temperature 97.1 F L Pulse Rate 75 Respiratory Rate 20 Blood Pressure 143/80 H Pulse Oximetry 99 Oxygen Delivery Room Air Exam Narrative: Physical exam reveals patient to be alert. Vital signs stable. HEENT
[2023-03-14 07:52] VITALS: BP 98/54; PULSE 62; RESP 17; O2SAT 96
[2023-03-14 08:02] VITALS: BP 107/65; PULSE 65; RESP 25
[2023-03-14 08:11] VITALS: BP 107/65; PULSE 65; RESP 22
== END 2023-03-14 08:15 | disposition home or self-care (01) ==
PROVIDERS: PCP Internal Medicine; Visit Provider Internal Medicine Gastroenterology
PROC: 0DJD8ZZ Inspection of Lower Intestinal Tract, Via Natural or Artificial Opening Endoscopic (ICD-10-PCS; CPT 45378; principal; 2023-03-14 07:30)
DX: Z12.11 Encounter for screening for malignant neoplasm of colon (principal); K64.8 Other hemorrhoids; Z86.010 Personal history of colon polyps; Z80.0 Family history of malignant neoplasm of digestive organs; E78.5 Hyperlipidemia, unspecified; G47.33 Obstructive sleep apnea (adult) (pediatric); E55.9 Vitamin D deficiency, unspecified; Z85.72 Personal history of non-Hodgkin lymphomas; F17.290 Nicotine dependence, other tobacco product, uncomplicated; E66.9 Obesity, unspecified; Z68.32 Body mass index [BMI] 32.0-32.9, adult
CPT/HCPCS: G0105; J2704; J7120